=== PATIENT | female | born 1985 | race Two or more races ===

== ENCOUNTER → 2021-05-01 | Emergency (ER) | payer OTHER ==
[~2021-05-01] VITALS: Ht 160 cm; Wt 64.4 kg
[~2021-05-01] MED LIST: SPRINTEC 28 DA1 EACH; VITAL-D RX TAB1 EACH
== END | disposition left against medical advice (07) ==
LOC: ER 02:49
DX: Z53.20 Procedure and treatment not carried out because of patient's decision for unspecified reasons (principal)